=== PATIENT | male | born 1980 | race Caucasian/White ===

== ENCOUNTER 2020-11-04 10:09 | Inpatient (IN) | payer BC, SELFPAY ==
[2020-11-04] VITALS (25 sets, daily range): BP systolic 122–156; BP diastolic 72–88; PULSE 82–115; RESP 18–43; TEMP 36.5–37.2; O2SAT 88–94; BMI 56.2
--- NOTE | ~2020-11-04 | XR_ITS ---
EXAMINATION: XR chest 1V portable DATE: 11/08/2020 07:36 INDICATION: Pneumonia TECHNIQUE: frontal view of the chest was obtained. COMPARISON: Chest radiograph dated 11/06/2020 FINDINGS: Continued slight increase in density of scattered bilateral patchy airspace opacities. No pneumothora x or definitive pleural effusion. The cardiomediastinal silhouette is normal. IMPRESSION: 1. Increasing bilateral patchy airspace opacities consistent with worsening pneumonia. Reviewed, dictated and finalized at location A. IMPRESSION: 1. Increasing bilateral patchy airspace opacities consistent with worsening pne umonia.
--- NOTE | ~2020-11-04 | XR_ITS ---
EXAMINATION: XR chest 1V portable INDICATION: Shortness of breath, COVID 19 positive TECHNIQUE: Portable AP chest at 1038 hours COMPARISON: None available FINDINGS: There are diffuse patchy opacities throughout all lung zones. No pleural effusion or pneumo thorax is identified. The cardiomediastinal silhouette is normal. The visualized osseous structures a re unremarkable. IMPRESSION: 1. Diffuse lung disease, consistent with pneumonia and/or pulmonary edema edema. Reviewed, dictated and finalized at location A. IMPRESSION: 1. Diffuse lung disease, consistent with pneumonia and/or pulmonary edema edema .
--- NOTE | ~2020-11-04 | XR_ITS ---
XR chest 1V portable 11/06/2020 06:14 Indication: Hypoxia. Pneumonia. Procedure: AP portable chest Comparison: 11/04/2020 Findings: Persistent diffuse bilateral airspace disease, consistent with pneumonia, without significa nt change. No significant effusion or pneumothorax. No acute osseous abnormality. Impression: 1: Persistent bilateral airspace disease, compatible with pneumonia. Reviewed, dictated and finalized at location A. Impression: 1: Persistent bilateral airspace disease, compatible with pneumonia.
--- NOTE | ~2020-11-04 | CT_ITS ---
EXAMINATION: CTA chest PE protocol DATE: 11/04/2020 13:26 INDICATION: Shortness of breath, cough, COVID 19 positive TECHNIQUE: Computed tomography angiography (CTA) of the chest was performed with 200 mL Omnipaque-350 intravenous contrast timed to evaluate the pulmonary arteries. Coronal maximum intensity projection 3D-reconstructions were created by the technologist. The dose-length product (DLP) was 1642.11 mGy-cm . Automated exposure control and iterative reconstruction technique were employed. COMPARISON: None. FINDINGS: There is suboptimal opacification of the pulmonary arteries after two attempts. No central pulmonary embolism is identified. There are widespread patchy groundglass and nodular opacities throu ghout all lung zones. There is no pleural effusion or pneumothorax. The heart size is normal. There i s mild bilateral hilar lymphadenopathy, likely reactive. There are stones in the upper pole of the le ft kidney which measure up to 6 mm. IMPRESSION: 1. Limited evaluation for pulmonary embolism with no central pulmonary embolism identified. 2. Diffuse lung disease consistent with history of COVID 19 pneumonia. 3. Left nephrolithiasis. Reviewed, dictated and finalized at location A.
--- NOTE | 2020-11-04 10:25 | ECG_ITS ---
Measurements Intervals [place] Rate: 112 P: 22 HI: 164 QRS: 5 QRSD: 93 T: 33 QT: 340 QTc: 464 Interpretive Statements SINUS TACHYCARDIA INCOMPLETE RIGHT BUNDLE BRANCH BLOCK BASELINE ARTIFACT- I, II, III, AVR, AVF, V1-V6 ABNORMAL ECG Electronically Signed On 11-04-2020 10:52:51 CDT by Ion Horton D.O.
[2020-11-04 10:50] LABS: Basophils Percent Auto 0.2 % (0.2-1.2); Hematocrit 43.1 % (42.0-52.0); Hemoglobin 14.1 g/dL (14.0-18.0); Immature Granulocyte Absolute 0.04 K/mm3 (0.00-0.031); Immature Granulocyte Percent A 0.6 % (0-0.5); Lymphocytes Absolute Auto 0.61 K/mm3 (0.9-3.2); Lymphocytes Percent Auto 9.5 % (18.3-44.2); Mean Corpuscular HGB Conc 32.7 g/dl (32-36); Mean Corpuscular Hemoglobin 26.5 pg (26-34); Mean Platelet Volume 9.9 fl (7.4-10.4); Monocytes Absolute Auto 0.3 K/mm3 (0.1-0.6); Monocytes Percent Auto 4.5 % (2.6-8.5); Neutrophils Absolute Auto 5.5 K/mm3 (1.3-6.7); Neutrophils Percent Auto 85.2 % (45.5-73.1); Platelet Count Result 161 k/mm3 (150-375); Red Blood Count 5.32 M/mm3 (4.6-6.20); Red Cell Distribution Width 15.1 % (11.5-14.5); White Blood Count 6.4 K/mm3 (4.5-10.0)
[2020-11-04 11:01] LABS: Base Excess ABG -1.7 mEq/l (+/-2.0); Fractional Inspired Oxygen 32 %; HCO3 ABG 20.9 mEq/l (22.0-26.0); Oxygen Content ABG 18.6 %vol (16.0-22.0); Oxygen Saturation ABG 94.4 % (95.0-100.0); Oxyhemoglobin 92.6 % THb (90.0-100.0); PCO2 ABG 29.9 mmHg (35.0-45.0); PO2 ABG 66.2 mmHg (80.0-100.0); PO2 FiO2 Ratio Arterial Blood 2.07 %; Total Hemoglobin 14.3 g/dL (12.0-18.0); pH ABG 7.462 (7.350-7.450)
[2020-11-04 11:03] LABS: Device NASAL CANNULA; Modified Allen's Test Pass; Site Drawn LEFT RADIAL
[2020-11-04 11:48] LABS: Anion Gap 8 mmol/L (8-16); Blood Urea Nitrogen 9 mg/dL (9-20); Calcium 8.6 mg/dL (8.4-10.2); Carbon Dioxide 26 mmol/L (22-30); Chloride 102 mmol/L (98-107); Estimated CRCL calculation 205 ml/min; Estimated Glomerular Filt Rate > 60; Glucose 163 mg/dL (75-110); Potassium 3.7 mmol/L (3.4-5.0); Sodium 136 mmol/L (137-145)
[2020-11-04 11:53] LABS: Alanine Aminotransferase 46 U/L (4-50); Albumin Level 3.8 g/dL (3.5-5.1); Alkaline Phosphatase 55 U/L (38-126); Aspartate Amino Transferase 49 U/L (17-59); Bilirubin,Total 1.1 mg/dL (0.2-1.3)
--- NOTE | 2020-11-04 12:16 | ED.SOB ---
HPI - SOB/Dyspnea General Chief Complaint: Shortness of Breath/Dyspnea Stated Complaint: COVID+ on Saturday / SOB Time Seen by Provider: 11/04/20 10:28 Source: patient and RN notes reviewed Mode of arrival: ambulatory Limitations: no limitations History of Present Illness HPI Narrative: Patient is 40 years old white male presented to the ED with shortness of breath and not feeling well over the last few days. 9 days ago patient started having slight headache, coughing, body aches, sore throat, 6 days later was tested positive for COVID-19. Patient did not get the Covid vaccine because he was feeling leery about it. Patient is 208 kg, does not smoke, Related Data Allergies Allergy/AdvReac Type Severity Reaction Status Date / Time No Known Allergies Allergy Verified 11/04/20 10:26 Review of Systems Review of Systems: Narrative: CONSTITUTIONAL: Denies fever, chills, or sweats. EYES: Denies visual changes, redness, or discharge. ENT: Denies rhinorrhea, congestion, sore throat, or otalgia. CARDIOVASCULAR: Denies chest pain, palpitations, or edema. RESPIRATORY: Coughing, shortness of breath GASTROINTESTINAL: Denies abdominal pain, nausea, vomiting, or diarrhea. GENITOURINARY: Denies dysuria or hematuria. SKIN: Denies rash or itching. MUSCULOSKELETAL: Denies back pain, joint pain, or myalgia. NEUROLOGIC: Denies headache, numbness, or weakness. PSYCHIATRIC: Denies anxiety or depression. Exam Narrative: Exam Narrative: General appearance: Well-developed, well-nourished, morbidly obese, sitting in bed comfortable, no labored breathing. Skin: Normal color Head: Normocephalic, nontraumatic Eyes: Clear conjunctiva ENT: Oropharynx normal, ears normal, nose normal Neck: Supple, nontender Chest and respiratory: Airway patent, mild to moderate diminution of air entry bilaterally, few scattered rhonchi and rales mainly at the bases bilaterally Heart: Tachycardia Abdomen: Soft, nontender, no organomegaly, quiet bowel sounds Vascular: Normal peripheral pulses, normal capillary refill. 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 Labs, chest x-ray, CTA pulmonary ordered. Further plan to follow Differential Diagnosis Differential diagnosis: Likely other (, Pneumonia, acute hypoxic respiratory failure, ARDS) Lab Data Result diagrams: 11/04/20 10:37 11/04/20 11:24 Labs: Lab Results 11/04/20 11/04/20 11/04/20 Range/Units 10:37 11:24 11:24 WBC 6.4 (4.5-10.0) K/mm3 RBC 5.32 (4.6-6.20) M/mm3 Hgb 14.1 (14.0-18.0) g/dL Hct 43.1 (42.0-52.0) % MCV 81.0 (80-100) fl MCH 26.5 (26-34) pg MCHC 32.7 (32-36) g/dl RDW 15.1 H (11.5-14.5) % Plt Count 161 (150-375) k/mm3 MPV 9.9 (7.4-10.4) fl Immature Gran % (Auto) 0.6 H (0-0.5) % Neut % (Auto) 85.2 H (45.5-73.1) % Lymph % (Auto) 9.5 L (18.3-44.2) % S[place] % (Auto) 4.5 (2.6-8.5) % Eos % (Auto) 0.0 (0-4.4) % Baso % (Auto) 0.2 (0.2-1.2)
[2020-11-04] MEDS: DEXAMETHASONE 2 MG TABLET 6 MG PO (12:59)
--- NOTE | 2020-11-04 14:00 | PM.IMHP ---
H&P: HPI History of Present Illness Date/Time: 11/04/20 13:30 Chief Complaint: Shortness of breath and low oxygen levels. Narrative: This is a very pleasant 40-year-old male with hypertension, post ablative hypothyroidism, sleep apnea, and morbid obesity presented to the emergency department earlier today via private vehicle for evaluation of shortness of breath and low oxygen levels noted on his smart watch. He began feeling poorly about 9 days ago with headache, nonproductive cough, sore throat, subjective fever, and body aches. Six days thereafter he tested positive for COVID-19 and he was given prescriptions for azithromycin, zinc, and famotidine. Unfortunately he has been feeling worse over last few days with shortness of breath and today he noticed that his oxygen saturations were in the 80s on his smart watch and thus he came in for evaluation. Chest x-ray shows diffuse lung disease consistent with pneumonia and due to oxygen requirements he is being admitted for further treatment. The patient is from [place] but is been in the area for a job since last February. Several coworkers have had COVID over the last year but none for about a month, to his knowledge. He has no known exposure to those positive for COVID recently. He denies chest pain, pleuritic pain, palpitations, orthopnea, PND, and lower extremity edema. He has had some nausea and dry heaves but no vomiting. No recent diarrhea. Review of Systems Review of Systems: Narrative: Twelve systems were reviewed with pertinent positives and negatives as per HPI. He has had a mild sore throat. Reports decreased in smell and taste recently. No vomiting or diarrhea. Denies dysuria. States compliance with CPAP at nighttime. No history of diabetes. Was set for weight loss surgery sometime in 2019 but on preoperative work he was found to have hyperthyroidism and had radioactive iodine ablation shortly thereafter. He then became hypothyroid and gained quite a bit of weight. Except as documented, all other systems were reviewed and are negative. [facility] Past Medical History Medical History (Updated 11/04/20 @ 21:52 by Maribell Wilson PA-C) Graves disease Status post radioactive iodine ablation in 2019. Hypertension Hypothyroidism Post ablated hypothyroidism. Morbid obesity Nephrolithiasis Obstructive sleep apnea on CPAP Surgical History Surgical History (Updated 11/04/20 @ 21:48 by Maribell Wilson PA-C) History of appendectomy History of arthroscopy of left knee History of inguinal hernia repair History of lithotripsy History of tonsillectomy and adenoidectomy Status post LASIK surgery Family History Family History Mother Diabetes mellitus Stomach cancer Father Diabetes mellitus Malignant neoplasm of prostate Thyroid cancer Cerebrovascular accident Social History Social History (Updated 11/04/20 @ 21:49 by Maribell Wilson PA-C) Social History: The patient lives in [place] with his and children. He is in the area working since February 2020. Former smoker, up to 1.5 packs of cigarettes a day for 15 years. Drinks perhaps 1 alcoholic beverage a week. No illicit substance use. He designates his , Yuly Wilburn, as his surrogate decision maker and he wishes to be a full code. Drinks per week: 1 Sexual Orientation (if Verbalized by the Patient): . Meds Home Medications and Allergies Home Medications Medication Instructions Recorded Confirmed Type Vitamin D3 4,000 unit PO DAILY 11/04/20 11/04/20 History ascorbic acid (vitamin C) [Vitamin 500 mg PO BID 11/04/20 11/04/20 History C] famotidine 20 mg PO BID 11/04/20 11/04/20 History hydrochlorothiazide 25 mg PO DAILY 11/04/20 11/04/20 History levothyroxine [Synthroid] 250 mcg PO DAILY 11/04/20 11/04/20 History lisinopril 20 mg PO DAILY 11/04/20 11/04/20 History propranolol 40 mg PO TID 11/04/20 11/04/20 History z
--- NOTE | 2020-11-04 15:34 | ADMGEN ---
This patient, Wood Wilburn, was admitted to 3 Med Surg Room 328-01. Patient/family oriented to hospital policies and general routines including ID bracelet, bed and alarms, visiting hours, pain management, procedures, bathroom and other care routines, personal items, smoking policy, room service/diet, and visiting hours. Information on how to activate the Rapid Response Team has been discussed. Patient/Family are encouraged to report perceived risks to care and to ask questions if they do not understand what they are told or what they should do.
[2020-11-04 21:14] LABS: Glucose Point of Care 212 mg/dl (65-105)
[2020-11-04] MEDS: ALBUTEROL SULFATE NEB 2.5 MG/0.5 ML INH 5 MG INHALATION (21:57)
[2020-11-04 22:40] LABS: INR 1.1; Prothrombin Time 14.5 Seconds (11.1-14.7)
[2020-11-04] MEDS: PROPRANOLOL HCL 40 MG TABLET PO (23:19)
[2020-11-04] MEDS: REMDESIVIR 200 MG/NS 250 ML 200 MG/250 ML BAG 250 MG IVPB (23:19)
[2020-11-05] VITALS (27 sets, daily range): BP systolic 112–141; BP diastolic 60–85; PULSE 75–108; RESP 18–28; TEMP 36.6–37.7; O2SAT 86–99
[2020-11-05] MEDS: LEVOTHYROXINE SODIUM 125 MCG TABLET 250 MCG PO (06:11)
[2020-11-05 06:40] LABS: Hematocrit 40.9 % (42.0-52.0); Hemoglobin 13.3 g/dL (14.0-18.0); Mean Corpuscular HGB Conc 32.5 g/dl (32-36); Mean Corpuscular Hemoglobin 26.5 pg (26-34); Mean Corpuscular Volume 81.5 fl (80-100); Mean Platelet Volume 10.1 fl (7.4-10.4); Platelet Count Result 204 k/mm3 (150-375); Red Blood Count 5.02 M/mm3 (4.6-6.20)
--- NOTE | 2020-11-05 06:45 | PCRCNOTE ---
Window of time for administration has passed. See next scheduled administration.
[2020-11-05 06:48] LABS: INR 1.1; Prothrombin Time 14.4 Seconds (11.1-14.7)
[2020-11-05 07:06] LABS: Alanine Aminotransferase 45 U/L (4-50); Albumin Level 3.9 g/dL (3.5-5.1); Alkaline Phosphatase 53 U/L (38-126); Anion Gap 12 mmol/L (8-16); Aspartate Amino Transferase 53 U/L (17-59); Bilirubin,Total 0.9 mg/dL (0.2-1.3); Blood Urea Nitrogen 12 mg/dL (9-20); CRP 22.7 mg/dL (<1.0); Calcium 8.9 mg/dL (8.4-10.2); Carbon Dioxide 24 mmol/L (22-30); Chloride 100 mmol/L (98-107); Estimated CRCL calculation 204 ml/min; Estimated Glomerular Filt Rate > 60; Glucose 161 mg/dL (75-110); Lactate Dehydrogenase 994 U/L (313-618); Magnesium 1.7 mg/dL (1.6-2.3); Potassium 4.2 mmol/L (3.4-5.0); Sodium 136 mmol/L (137-145)
[2020-11-05] MEDS: ALBUTEROL SULFATE NEB 2.5 MG/0.5 ML INH 5 MG INHALATION ×2 (08:50→21:43)
[2020-11-05] MEDS: PROPRANOLOL HCL 40 MG TABLET PO ×3 (09:45→17:55)
[2020-11-05] MEDS: CHOLECALCIFEROL 1,000 UNITS TABLET 4000 UNITS PO (09:46)
[2020-11-05] MEDS: lisinopriL 20 MG TABLET PO (09:46)
[2020-11-05] MEDS: ZINC SULFATE 220 MG CAPSULE PO (09:46)
[2020-11-05] MEDS: FAMOTIDINE 20 MG TABLET PO ×2 (09:47→17:55)
[2020-11-05] MEDS: hydroCHLOROthiazide 25 MG TABLET PO (09:47)
[2020-11-05] MEDS: ASCORBIC ACID 500 MG TABLET PO ×2 (09:47→17:55)
[2020-11-05] MEDS: ENOXAPARIN 40 MG/0.4 ML SYRINGE SUB-Q ×2 (09:47→20:36)
[2020-11-05 14:54] LABS: Alveolar/Arterial O2 Gradient 428.9 mmHg; Base Excess ABG 1.5 mEq/l (+/-2.0); Carboxyhemoglobin 0.4 % THb (0-2.0); Device HIGH FLOW THERAPY; Fractional Inspired Oxygen 75 %; HCO3 ABG 24.9 mEq/l (22.0-26.0); Methemoglobin ABG 0.4 %THb (0-1.5); Modified Allen's Test Pass; Oxygen Content ABG 18.7 %vol (16.0-22.0); Oxygen Saturation ABG 94.7 % (95.0-100.0); Oxyhemoglobin 93.2 % THb (90.0-100.0); PCO2 ABG 35.5 mmHg (35.0-45.0); PO2 ABG 68.1 mmHg (80.0-100.0); PO2 FiO2 Ratio Arterial Blood 0.91 %; Site Drawn LEFT RADIAL; Total Hemoglobin 14.3 g/dL (12.0-18.0); pH ABG 7.463 (7.350-7.450)
--- NOTE | 2020-11-05 15:09 | PM.IMPN ---
Progress Note: A&P Assessment and Plan (1) Acute respiratory failure with hypoxia: Code(s): J96.01 - Acute respiratory failure with hypoxia Status: Acute Assessment and Plan: The patient is a 40-year-old man with a history of hypertension, hypothyroidism, who presented to the emergency room with increased shortness of breath and his smart watch telling him he had low oxygen levels. The patient developed COVID-19 symptoms of shortness of breath, cough, fatigue on 10/26/20. he had a COVID swab and was found to be positive on 10/31/2020. He called his doctor who is in [place] who prescribed him azithromycin, zinc and famotidine. His symptoms were not improving and instead gradually worsening and decided to come in for further evaluation. Initial vitals showed he was afebrile at 97.7?, tachycardic at 114, increased respiratory rate at 28 respirations a minute, blood pressure 139/83, and hypoxic at 88% on room air. Initial labs showed normal CBC with elevated neutrophil count at 85%, normal coag panel, ABG showing respiratory alkalosis from hyperventilation While on 3 L of oxygen. glucose elevated at 163, otherwise normal CMP. CTA of his chest was completed showing Limited evaluation for pulmonary embolism with no central pulmonary embolism identified. Diffuse lung disease consistent with history of COVID 19 pneumonia. He was admitted into the hospital for COVID-19 pneumonia and acute respiratory failure with hypoxia. Started on IV Remdesivir, IV dexamethasone, p.r.n. inhalers and monitoring of respiratory status. 1400: The patient's nurse called and informed me that he had been on 6 L of oxygen via nasal cannula was still found to be hypoxic. He was being placed on Airvo by respiratory due to hypoxia. Stat ABG showed respiratory alkalosis, slightly elevated pH, normal pCO2 and O2 94% while on High Flow Therapy 50 LPM, FiO2 75%. Stable at this time per ABG. The patient will be transferred to the IMU for further evaluation and monitoring. I talked to the resident care coordinator, Dr. Weston, who recommended ordering Convalescent Plasma, Blood cultures due to decompensation and adding IV Azithromycin and Ceftriaxone, Turning the patient side to side to help with ventilation. If the patient decompensates from Airvo then he will require BiPAP and recommended starting with settings, 12/5 with 100% ventilation The patient can still wear his CPAP and will get the patients home settings Continue monitoring the patient's respiratory status. (2) Pneumonia due to COVID-19 virus: Code(s): U07.1 - COVID-19; J12.82 - Pneumonia due to coronavirus disease 2018 Status: Acute Assessment and Plan: see above. (3) Hypertension: Code(s): I10 - Essential (primary) hypertension Status: Acute Assessment and Plan: Blood pressure stable at 125/62. continue home medications (4) Hypothyroidism: Code(s): E03.9 - Hypothyroidism, unspecified Status: Acute Assessment and Plan: continue levothyroxine. TSH was normal. (5) Obstructive sleep apnea on CPAP: Code(s): G47.33 - Obstructive sleep apnea (adult) (pediatric); Z99.89 - Dependence on other enabling machines and devices Status: Acute Assessment and Plan: The patient can still wear his CPAP and will get the patients home settings (6) Elevated glucose: Code(s): R73.09 - Other abnormal glucose Status: Acute Assessment and Plan: Patient had elevated glucose levels. he is not on any diabetes medication at this time. Will check hemoglobin A1c in the morning in the meantime while he is on steroids and having elevated glucose we will check glucose a.c. HS. slidi
--- NOTE | 2020-11-05 16:07 | PC.NURSE ---
This RN transferred pt to IMU 214; report given to Gin. Pt belongings, CPAP, and phone sent with pt. notifed.
[2020-11-05 16:21] LABS: Glucose Point of Care 156 mg/dl (65-105)
--- NOTE | 2020-11-05 17:06 | PCRCNOTE ---
Window of time for administration has passed. See next scheduled administration.
[2020-11-05] MEDS: DEXAMETHASONE SOD PHOS INJ 4 MG/ML VIAL 6 MG IV PUSH (17:55)
--- NOTE | 2020-11-05 19:58 | PC.NURSE ---
This patient, Wood Wilburn, was received from [3rd med/surg ] on 11/05/20 at 1545. Patient/family oriented to unit policies and routines
[2020-11-05 20:07] LABS: Glucose Point of Care 158 mg/dl (65-105)
[2020-11-05] MEDS: SODIUM CHLORIDE NASAL GEL 14.1 GM 1 APPLIC NASAL (20:36)
[2020-11-05] MEDS: REMDESIVIR 100 MG/NS 250 ML 100 MG/250 ML BAG 250 MG IVPB (20:36)
[2020-11-06] VITALS (34 sets, daily range): BP systolic 110–133; BP diastolic 56–76; PULSE 63–81; RESP 20–26; TEMP 35.9–37.1; O2SAT 94–98
[2020-11-06] MEDS: ALBUTEROL SULFATE NEB 2.5 MG/0.5 ML INH 5 MG INHALATION ×4 (03:21→20:10)
[2020-11-06] MEDS: LEVOTHYROXINE SODIUM 125 MCG TABLET 250 MCG PO (05:33)
[2020-11-06 06:02] LABS: Hematocrit 40.7 % (42.0-52.0); Hemoglobin 12.9 g/dL (14.0-18.0); Mean Corpuscular HGB Conc 31.7 g/dl (32-36); Mean Corpuscular Hemoglobin 26.4 pg (26-34); Mean Corpuscular Volume 83.2 fl (80-100); Mean Platelet Volume 9.6 fl (7.4-10.4); Platelet Count Result 236 k/mm3 (150-375); Red Blood Count 4.89 M/mm3 (4.6-6.20); Red Cell Distribution Width 15.2 % (11.5-14.5); White Blood Count 5.9 K/mm3 (4.5-10.0)
[2020-11-06 06:20] LABS: INR 1.1; Prothrombin Time 14.7 Seconds (11.1-14.7)
[2020-11-06 06:21] LABS: NT Pro B Type Natriuretic Pept 251 pg/mL (5-100)
[2020-11-06 06:29] LABS: Alanine Aminotransferase 45 U/L (4-50); Alkaline Phosphatase 50 U/L (38-126); Anion Gap 10 mmol/L (8-16); Aspartate Amino Transferase 46 U/L (17-59); Bilirubin,Total 0.7 mg/dL (0.2-1.3); Blood Urea Nitrogen 19 mg/dL (9-20); CRP 17.4 mg/dL (<1.0); Calcium 9.2 mg/dL (8.4-10.2); Carbon Dioxide 26 mmol/L (22-30); Chloride 102 mmol/L (98-107); Estimated CRCL calculation 204 ml/min; Estimated Glomerular Filt Rate > 60; Glucose 198 mg/dL (75-110); Potassium 4.4 mmol/L (3.4-5.0); Sodium 138 mmol/L (137-145)
[2020-11-06 07:11] LABS: Glucose Point of Care 161 mg/dl (65-105)
[2020-11-06 07:18] LABS: Hemoglobin A1C 6.8 % (<5.7)
[2020-11-06] MEDS: FAMOTIDINE 20 MG TABLET PO ×2 (08:40→17:59)
[2020-11-06] MEDS: lisinopriL 20 MG TABLET PO (08:40)
[2020-11-06] MEDS: ENOXAPARIN 40 MG/0.4 ML SYRINGE SUB-Q ×2 (08:40→20:48)
[2020-11-06] MEDS: hydroCHLOROthiazide 25 MG TABLET PO (08:41)
[2020-11-06] MEDS: CHOLECALCIFEROL 1,000 UNITS TABLET 4000 UNITS PO (08:41)
[2020-11-06] MEDS: DEXAMETHASONE SOD PHOS INJ 4 MG/ML VIAL 6 MG IV PUSH (08:41)
[2020-11-06] MEDS: PROPRANOLOL HCL 40 MG TABLET PO ×3 (08:42→17:58)
[2020-11-06] MEDS: ASCORBIC ACID 500 MG TABLET PO ×2 (08:42→17:58)
[2020-11-06] MEDS: ZINC SULFATE 220 MG CAPSULE PO (08:43)
--- NOTE | 2020-11-06 10:20 | PM.IMPN ---
Progress Note: A&P Assessment and Plan (1) Acute respiratory failure with hypoxia: Code(s): J96.01 - Acute respiratory failure with hypoxia Status: Acute Assessment and Plan: The patient is a 40-year-old man with a history of hypertension, hypothyroidism, who presented to the emergency room with increased shortness of breath and his smart watch telling him he had low oxygen levels. The patient developed COVID-19 symptoms of shortness of breath, cough, fatigue on 10/26/20. he had a COVID swab and was found to be positive on 10/31/2020. He called his doctor who is in [place] who prescribed him azithromycin, zinc and famotidine. His symptoms were not improving and instead gradually worsening and decided to come in for further evaluation. Initial vitals showed he was afebrile at 97.7?, tachycardic at 114, increased respiratory rate at 28 respirations a minute, blood pressure 139/83, and hypoxic at 88% on room air. Initial labs showed normal CBC with elevated neutrophil count at 85%, normal coag panel, ABG showing respiratory alkalosis from hyperventilation While on 3 L of oxygen. glucose elevated at 163, otherwise normal CMP. CTA of his chest was completed showing Limited evaluation for pulmonary embolism with no central pulmonary embolism identified. Diffuse lung disease consistent with history of COVID 19 pneumonia. He was admitted into the hospital for COVID-19 pneumonia and acute respiratory failure with hypoxia. Hypoxia secondary to COVID Started on IV Remdesivir, IV dexamethasone, p.r.n. inhalers and monitoring of respiratory status. 11/06/20 1400: The patient's nurse called and informed me that he was hypoxic with and requiring Airvo. 6 L of oxygen via nasal cannula was still found to be hypoxic. Stat ABG showed respiratory alkalosis, slightly elevated pH, normal pCO2 and O2 94% while on High Flow Therapy 50 LPM, FiO2 75%. He was moved to the IMU for further evaluation. I talked to the link trainer, Dr. Weston, who recommended ordering Convalescent Plasma, Blood cultures due to decompensation and adding IV Azithromycin and Ceftriaxone, Turning the patient side to side to help with ventilation. If the patient decompensates from Airvo then he will require BiPAP and recommended starting with settings, 12/5 with 100% ventilation Today, patient is stable 95%, Airvo 50-90. Continue monitoring the patient's respiratory status. Appreciate pulmonology's input. (2) Pneumonia due to COVID-19 virus: Code(s): U07.1 - COVID-19; J12.82 - Pneumonia due to coronavirus disease 2018 Status: Acute Assessment and Plan: see above. (3) Hypertension: Code(s): I10 - Essential (primary) hypertension Status: Acute Assessment and Plan: Blood pressure stable at 120/73. Continue home medications (4) Hypothyroidism: Code(s): E03.9 - Hypothyroidism, unspecified Status: Acute Assessment and Plan: continue levothyroxine. TSH was normal. (5) Obstructive sleep apnea on CPAP: Code(s): G47.33 - Obstructive sleep apnea (adult) (pediatric); Z99.89 - Dependence on other enabling machines and devices Status: Acute Assessment and Plan: The patient can still wear his CPAP and will get the patients home settings (6) New onset type 2 diabetes mellitus: Code(s): E11.9 - Type 2 diabetes mellitus without complications Status: Acute Assessment and Plan: Patient had elevated glucose levels and hemoglobin A1c is elevated at 6.8%. He has a new onset diabetic at this time. Will consider starting metformin upon discharge. While here we were continue checking glucose and giving sliding scale insulin as needed. His
--- NOTE | 2020-11-06 10:38 | PM.CNPUL ---
Assessment and Plan Assessment and plan (1) Pneumonia due to COVID-19 virus: Code(s): U07.1 - COVID-19; J12.82 - Pneumonia due to coronavirus disease 2019 Status: Acute Assessment and Plan: Patient with COVID postitive test on 10/31 and admitted with pneumonia with hypoxemic respiratory failure on 11/04. started on dexamethasone and Remdesivir on 11/04 and given convalescent plasma on 11/05 Emperically started on ceftriaxone and azithromycin 11/05. -Remdesivir for 10 days -Dexamethasone for 10 days - Continuous pulse oximetry - attempt Prone positioning but limited as morbidly obese. - Avoid any fluid overload. BNP 251 on 11/06. - Emperic azithromycin and ceftraixone for CAP. - Obtain echo to assess LV function in future. - Lovenox from 40 b.i.d. 11/06 Today the patient tells me that he feels better, he did have a fever and sweats last night and he was able to taste his dinner last night. Patient is currently on high-flow nasal cannula 50 L and 65% with saturations 94%. Goal saturations are 90-94% and will utilize high-flow oxygen, BiPAP, or mechanical ventilation. Conference call with his and patient and patient is full code Discussed with Jade Bender. Will follow with you. (2) Acute respiratory failure with hypoxia: Code(s): J96.01 - Acute respiratory failure with hypoxia Status: Acute Assessment and Plan: Etiology of hypoxic respiratorey failure is COVID pneumonia. 11/04 10:15 RA sats 88%. 11/04 10:45 3L NC sats 93% 11/05 10:00 6L NC sats 96% 11/05 14:00 15 L NC sats 92%. 11/05 22:00 high-flow NC at 50 L and 70% sats 98%. 11/05 22: BiPAP 12/ and 70%. 11/06 09:00 high flow NC at 50 L and 65% sats 94%. (3) Obstructive sleep apnea on CPAP: Code(s): G47.33 - Obstructive sleep apnea (adult) (pediatric); Z99.89 - Dependence on other enabling machines and devices Status: Acute Assessment and Plan: Regarding his obstructive sleep apnea patient states he had a sleep study at least 10 years ago and has been wearing CPAP mask since then with good clinical benefit. Patient states he can't sleep without the mask. Patient wears room air and he usually wears a nasal mask but over the last week as he has been sick he is switched to a fullface mask. Patient brought his home CPAP machine in and he is on a CPAP of 14, the data from the machine tells me that his days usage greater than 4 hours is 11/29/2029 days, his AHI is 0.5 over the last [address] Aniyah Jarquin is the physician that monitors his compliance and gets him his supplies and the patient tells me that he is in the process of getting a new machine because the machine is old and not because of any change in his clinical status. 11/05 Wore hospital BiPAP 12/5 70% and felt good according to patient. Will continue BiPAP at these settings for now. History of Present Illness History of Present Illness Consult date: 11/06/20 Requesting physician: Jade Bender PA-C Reason for consult: hypoxemia Chief complaint: Acute Hypoxic Resp Failure, Covid Pneumonia Narrative: This is a new patient consult for COVID pneumonia with hypoxemic respiratory failure this is a 40-year-old male with morbid obesity, obstructive sleep apnea for 10 years on a CPAP 14 with a nasal mask until the last week in which he has been wearing a fullface mask, hypertension who has COVID pneumonia with hypoxic respiratory failure. Patient tested positive for COVID on 10/31 and continued to have worsening respiratory symptoms. Patient presented to the emergency department on 11/04 with room air saturations 88%. Patient had a CT angiogram of the chest which demonstrated no pulmonary embolism but diffuse multifocal ground-glass infiltrates consistent with COVID pneumonia. Patient's original ABG on 3 L nasal cannula was 7.46/30/. Patient was started on REM de severe and dexamethasone on 11/04. On 11/05 patient required 6 L nasal cannula oxyge
[2020-11-06 11:42] LABS: Glucose Point of Care 191 mg/dl (65-105)
[2020-11-06 17:17] LABS: Glucose Point of Care 187 mg/dl (65-105)
[2020-11-06] MEDS: REMDESIVIR 100 MG/NS 250 ML 100 MG/250 ML BAG 250 MG IVPB (20:51)
[2020-11-06 20:52] LABS: Glucose Point of Care 207 mg/dl (65-105)
[2020-11-07] VITALS (34 sets, daily range): BP systolic 108–131; BP diastolic 20–77; PULSE 50–76; RESP 15–72; TEMP 36.4–37.2; O2SAT 94–98
[2020-11-07] MEDS: ALBUTEROL SULFATE NEB 2.5 MG/0.5 ML INH 5 MG INHALATION ×2 (02:30→08:50)
[2020-11-07 05:55] LABS: Alanine Aminotransferase 41 U/L (4-50); Estimated CRCL calculation 231 ml/min; Estimated Glomerular Filt Rate > 60
[2020-11-07] MEDS: LEVOTHYROXINE SODIUM 125 MCG TABLET 250 MCG PO (06:14)
[2020-11-07 06:41] LABS: INR 1.1; Prothrombin Time 14.8 Seconds (11.1-14.7)
[2020-11-07 08:06] LABS: Glucose Point of Care 168 mg/dl (65-105)
[2020-11-07] MEDS: DEXAMETHASONE SOD PHOS INJ 4 MG/ML VIAL 6 MG IV PUSH (08:58)
[2020-11-07] MEDS: FAMOTIDINE 20 MG TABLET PO ×2 (08:59→17:51)
[2020-11-07] MEDS: CHOLECALCIFEROL 1,000 UNITS TABLET 4000 UNITS PO (08:59)
[2020-11-07] MEDS: hydroCHLOROthiazide 25 MG TABLET PO (08:59)
[2020-11-07] MEDS: ZINC SULFATE 220 MG CAPSULE PO (08:59)
[2020-11-07] MEDS: lisinopriL 20 MG TABLET PO (08:59)
[2020-11-07] MEDS: ASCORBIC ACID 500 MG TABLET PO ×2 (08:59→17:51)
[2020-11-07] MEDS: ENOXAPARIN 40 MG/0.4 ML SYRINGE SUB-Q ×2 (08:59→20:21)
[2020-11-07] MEDS: PROPRANOLOL HCL 40 MG TABLET PO ×3 (08:59→17:51)
--- NOTE | 2020-11-07 11:32 | PM.PNPUL ---
Progress Note: A&P Assessment and Plan (1) Pneumonia due to COVID-19 virus: Code(s): U07.1 - COVID-19; J12.82 - Pneumonia due to coronavirus disease 2019 Status: Acute Assessment and Plan: Patient with COVID postitive test on 10/31 and admitted with pneumonia with hypoxemic respiratory failure on 11/04. started on dexamethasone and Remdesivir on 11/04 and given convalescent plasma on 11/05. Emperically started on ceftriaxone and azithromycin 11/05. -Remdesivir for 10 days -Dexamethasone for 10 days - Continuous pulse oximetry - attempt Prone positioning but limited as morbidly obese. - Avoid any fluid overload. BNP 251 on 11/06. - Emperic azithromycin and ceftraixone for CAP. - Obtain echo to assess LV function in future. - Lovenox 40 b.i.d. 11/06 Today the patient tells me that he feels better, he did have a fever and sweats last night and he was able to taste his dinner last night. Patient is currently on high-flow nasal cannula 50 L and 65% with saturations 94%. 11/07 Today patient tells me that he is improved and feels much better. Patient is currently on high-flow nasal cannula 10 L with saturations 96%, great improvement. Patient is sitting up in a chair in no respiratory distress. If blood cultures negative 11/08 will DC ceftraixone and azithromycin. Goal saturations are 90-94% and will utilize high-flow oxygen, BiPAP, or mechanical ventilation. 11/06 Conference call with his and patient and patient is full code Will follow with you. (2) Acute respiratory failure with hypoxia: Code(s): J96.01 - Acute respiratory failure with hypoxia Status: Acute Assessment and Plan: Etiology of hypoxic respiratorey failure is COVID pneumonia. 11/04 10:15 RA sats 88%. 11/04 10:45 3L NC sats 93% 11/05 10:00 6L NC sats 96% 11/05 14:00 15 L NC sats 92%. 11/05 22:00 high-flow NC at 50 L and 70% sats 98%. 11/05 22:25 BiPAP 12/5 and 70%. 11/06 09:00 high flow NC at 50 L and 65% sats 94%. 11/07 10:00 NC 10 L sats 96% (3) Obstructive sleep apnea on CPAP: Code(s): G47.33 - Obstructive sleep apnea (adult) (pediatric); Z99.89 - Dependence on other enabling machines and devices Status: Acute Assessment and Plan: Regarding his obstructive sleep apnea patient states he had a sleep study at least 10 years ago and has been wearing CPAP mask since then with good clinical benefit. Patient states he can't sleep without the mask. Patient wears room air and he usually wears a nasal mask but over the last week as he has been sick he is switched to a fullface mask. Patient brought his home CPAP machine in and he is on a CPAP of 14, the data from the machine tells me that his days usage greater than 4 hours is 11/29/2029 days, his AHI is 0.5 over the last [address] Aniyah Jarquin is the physician that monitors his compliance and gets him his supplies and the patient tells me that he is in the process of getting a new machine because the machine is old and not because of any change in his clinical status. 11/05 Wore hospital BiPAP 12/5 70% and felt good according to patient. Will continue BiPAP at these settings for now. 11/07 Said he was still snorming last night. Will place on CPAP 14 with 60% tonight. Subjective Date/time seen: 11/07/20 11:32 Interval history: this is a 40-year-old male with morbid obesity, obstructive sleep apnea for 10 years on a CPAP 14 with a nasal mask until the last week in which he has been wearing a fullface mask, hypertension who has COVID pneumonia with hypoxic respiratory failure. Patient tested positive for COVID on 10/31 and continued to have worsening respiratory symptoms. Patient presented to the emergency department on 11/04 with room air saturations 88%. Patient had a CT angiogram of the chest which demonstrated no pulmonary embolism but diffuse multifocal ground-glass infiltrates consistent with COVID pneumonia. Patient's original ABG on 3 L nasal cannula was
[2020-11-07] MEDS: INSULIN ASPART (*BKC) 100 UNITS/ML SUB-Q ×2 (12:28→17:51)
[2020-11-07 12:36] LABS: Glucose Point of Care 234 mg/dl (65-105)
--- NOTE | 2020-11-07 14:48 | PM.IMPN ---
Progress Note: A&P Assessment and Plan (1) Acute respiratory failure with hypoxia: Code(s): J96.01 - Acute respiratory failure with hypoxia Status: Acute Assessment and Plan: The patient is a 40-year-old man with a history of hypertension, hypothyroidism, who presented to the emergency room with increased shortness of breath and his smart watch telling him he had low oxygen levels. The patient developed COVID-19 symptoms of shortness of breath, cough, fatigue on 10/26/20. he had a COVID swab and was found to be positive on 10/31/2020. He called his doctor who is in [place] who prescribed him azithromycin, zinc and famotidine. His symptoms were not improving and instead gradually worsening and decided to come in for further evaluation. Initial vitals showed he was afebrile at 97.7?, tachycardic at 114, increased respiratory rate at 28 respirations a minute, blood pressure 139/83, and hypoxic at 88% on room air. Initial labs showed normal CBC with elevated neutrophil count at 85%, normal coag panel, ABG showing respiratory alkalosis from hyperventilation While on 3 L of oxygen. glucose elevated at 163, otherwise normal CMP. CTA of his chest was completed showing Limited evaluation for pulmonary embolism with no central pulmonary embolism identified. Diffuse lung disease consistent with history of COVID 19 pneumonia. He was admitted into the hospital for COVID-19 pneumonia and acute respiratory failure with hypoxia. Hypoxia secondary to COVID Started on IV Remdesivir, IV dexamethasone, p.r.n. inhalers and monitoring of respiratory status. 11/06/20 1400: The patient's nurse called and informed me that he was hypoxic with and requiring Airvo. 6 L of oxygen via nasal cannula was still found to be hypoxic. Stat ABG showed respiratory alkalosis, slightly elevated pH, normal pCO2 and O2 94% while on High Flow Therapy 50 LPM, FiO2 75%. He was moved to the IMU for further evaluation. I talked to the surgical supervisor, Dr. Weston, who recommended ordering Convalescent Plasma, Blood cultures due to decompensation and adding IV Azithromycin and Ceftriaxone, Turning the patient side to side to help with ventilation. If the patient decompensates from Airvo then he will require BiPAP and recommended starting with settings, 12/5 with 100% ventilation Today, patient is stable 94% on 8 L High Flow NC. Feeling well. Continue monitoring the patient's respiratory status. Appreciate pulmonology's input. (2) Pneumonia due to COVID-19 virus: Code(s): U07.1 - COVID-19; J12.82 - Pneumonia due to coronavirus disease 2018 Status: Acute Assessment and Plan: see above. (3) Hypertension: Code(s): I10 - Essential (primary) hypertension Status: Acute Assessment and Plan: Blood pressure stable at 118/69. Continue home medications (4) Hypothyroidism: Code(s): E03.9 - Hypothyroidism, unspecified Status: Acute Assessment and Plan: continue levothyroxine. TSH was normal. (5) Obstructive sleep apnea on CPAP: Code(s): G47.33 - Obstructive sleep apnea (adult) (pediatric); Z99.89 - Dependence on other enabling machines and devices Status: Acute Assessment and Plan: The patient can still wear his CPAP and will get the patients home settings (6) New onset type 2 diabetes mellitus: Code(s): E11.9 - Type 2 diabetes mellitus without complications Status: Acute Assessment and Plan: Patient had elevated glucose levels and hemoglobin A1c is elevated at 6.8%. He has a new onset diabetic at this time. Will consider starting metformin upon discharge. While here we were continue checking glucose and giving sliding scale insulin
[2020-11-07] MEDS: ALBUTEROL SULFATE NEB 2.5 MG/0.5 ML INH INHALATION ×2 (14:57→20:54)
[2020-11-07 17:20] LABS: Glucose Point of Care 215 mg/dl (65-105)
[2020-11-07] MEDS: SODIUM CHLORIDE NASAL GEL 14.1 GM 1 APPLIC NASAL (20:21)
[2020-11-07 20:53] LABS: Glucose Point of Care 196 mg/dl (65-105)
[2020-11-07] MEDS: REMDESIVIR 100 MG/NS 250 ML 100 MG/250 ML BAG 250 MG IVPB (20:59)
[2020-11-08] VITALS (26 sets, daily range): BP systolic 117–164; BP diastolic 64–91; PULSE 58–89; RESP 15–29; TEMP 36.6–37.1; O2SAT 86–99
[2020-11-08] MEDS: ALBUTEROL SULFATE NEB 2.5 MG/0.5 ML INH INHALATION ×4 (03:41→20:34)
[2020-11-08] MEDS: LEVOTHYROXINE SODIUM 125 MCG TABLET 250 MCG PO (05:38)
[2020-11-08 05:53] LABS: Hematocrit 40.3 % (42.0-52.0); Hemoglobin 13.2 g/dL (14.0-18.0); Mean Corpuscular HGB Conc 32.8 g/dl (32-36); Mean Corpuscular Hemoglobin 26.1 pg (26-34); Mean Corpuscular Volume 79.6 fl (80-100); Mean Platelet Volume 9.7 fl (7.4-10.4); Platelet Count Result 298 k/mm3 (150-375); Red Blood Count 5.06 M/mm3 (4.6-6.20); Red Cell Distribution Width 14.3 % (11.5-14.5); White Blood Count 8.9 K/mm3 (4.5-10.0)
[2020-11-08 06:02] LABS: INR 1.1; Prothrombin Time 14.7 Seconds (11.1-14.7)
[2020-11-08 06:09] LABS: Alanine Aminotransferase 45 U/L (4-50); Anion Gap 9 mmol/L (8-16); Blood Urea Nitrogen 23 mg/dL (9-20); CRP 2.6 mg/dL (<1.0); Calcium 9.1 mg/dL (8.4-10.2); Carbon Dioxide 27 mmol/L (22-30); Chloride 103 mmol/L (98-107); Estimated CRCL calculation 204 ml/min; Estimated Glomerular Filt Rate > 60; Glucose 147 mg/dL (75-110); Sodium 139 mmol/L (137-145)
[2020-11-08 08:12] LABS: Glucose Point of Care 139 mg/dl (65-105)
[2020-11-08] MEDS: CHOLECALCIFEROL 1,000 UNITS TABLET 4000 UNITS PO (09:50)
[2020-11-08] MEDS: hydroCHLOROthiazide 25 MG TABLET PO (09:51)
[2020-11-08] MEDS: FAMOTIDINE 20 MG TABLET PO ×2 (09:51→17:39)
[2020-11-08] MEDS: ENOXAPARIN 40 MG/0.4 ML SYRINGE SUB-Q ×2 (09:51→20:29)
[2020-11-08] MEDS: ZINC SULFATE 220 MG CAPSULE PO (09:51)
[2020-11-08] MEDS: ASCORBIC ACID 500 MG TABLET PO ×2 (09:51→17:40)
[2020-11-08] MEDS: lisinopriL 20 MG TABLET PO (09:51)
[2020-11-08] MEDS: PROPRANOLOL HCL 40 MG TABLET PO ×3 (09:51→17:39)
[2020-11-08] MEDS: DEXAMETHASONE SOD PHOS INJ 4 MG/ML VIAL 6 MG IV PUSH (09:52)
[2020-11-08] MEDS: guaiFENesin/DEXTROMETHORPHAN 10 ML UDC 5 ML PO ×3 (09:53→20:30)
--- NOTE | 2020-11-08 10:01 | PM.PNPUL ---
Progress Note: A&P Assessment and Plan (1) Pneumonia due to COVID-19 virus: Code(s): U07.1 - COVID-19; J12.82 - Pneumonia due to coronavirus disease 2019 Status: Acute Assessment and Plan: Patient with COVID postitive test on 10/31 and admitted with pneumonia with hypoxemic respiratory failure on 11/04. started on dexamethasone and Remdesivir on 11/04 and given convalescent plasma on 11/05. Emperically started on ceftriaxone and azithromycin 11/05. -Remdesivir for 10 days -Dexamethasone for 10 days - Continuous pulse oximetry - attempt Prone positioning but limited as morbidly obese. - Avoid any fluid overload. BNP 251 on 11/06. - Emperic azithromycin and ceftraixone for CAP. - Obtain echo to assess LV function in future. - Lovenox 40 b.i.d. 11/06 Today the patient tells me that he feels better, he did have a fever and sweats last night and he was able to taste his dinner last night. Patient is currently on high-flow nasal cannula 50 L and 65% with saturations 94%. 11/07 Today patient tells me that he is improved and feels much better. Patient is currently on high-flow nasal cannula 10 L with saturations 96%, great improvement. Patient is sitting up in a chair in no respiratory distress. If blood cultures negative 11/08 will DC ceftraixone and azithromycin. 11/08 Slowly improving. Patient wore says the hospital CPAP 14 last night and the pressure feels fine but the machine is louder and has more alarms which annoyed the patient. Patient is currently on high-flow nasal cannula 15 L with saturations 95%. Blood cultures are negative and I will discontinue ceftriaxone and azithromycin. Goal saturations are 90-94% and will utilize high-flow oxygen, BiPAP, or mechanical ventilation. 11/06 Conference call with his and patient and patient is full code Will follow with you. (2) Acute respiratory failure with hypoxia: Code(s): J96.01 - Acute respiratory failure with hypoxia Status: Acute Assessment and Plan: Etiology of hypoxic respiratorey failure is COVID pneumonia. 11/04 10:15 RA sats 88%. 11/04 10:45 3L NC sats 93% 11/05 10:00 6L NC sats 96% 11/05 14:00 15 L NC sats 92%. 11/05 22:00 high-flow NC at 50 L and 70% sats 98%. 11/05 22:25 BiPAP 12/5 and 70%. 11/06 09:00 high flow NC at 50 L and 65% sats 94%. 11/07 10:00 NC 10 L sats 96% 11/08 08:00 NC 15 L sats 95% (3) Obstructive sleep apnea on CPAP: Code(s): G47.33 - Obstructive sleep apnea (adult) (pediatric); Z99.89 - Dependence on other enabling machines and devices Status: Acute Assessment and Plan: Regarding his obstructive sleep apnea patient states he had a sleep study at least 10 years ago and has been wearing CPAP mask since then with good clinical benefit. Patient states he can't sleep without the mask. Patient wears room air and he usually wears a nasal mask but over the last week as he has been sick he is switched to a fullface mask. Patient brought his home CPAP machine in and he is on a CPAP of 14, the data from the machine tells me that his days usage greater than 4 hours is 11/29/2029 days, his AHI is 0.5 over the last [address] Aniyah Jarquin is the physician that monitors his compliance and gets him his supplies and the patient tells me that he is in the process of getting a new machine because the machine is old and not because of any change in his clinical status. 11/05 Wore hospital BiPAP 12/5 70% and felt good according to patient. Will continue BiPAP at these settings for now. 11/07 Said he was still snorming last night. Will place on CPAP 14 with 60% tonight. 11/08 Patient wore says the hospital CPAP 14 last night with 70% and the pressure feels fine but the machine is louder and has more alarms which annoyed the patient. Cannot use his home machine as a cannot handle high enough oxygen. Subjective Date/time seen: 11/08/20 10:01 Interval history: this is a 40-year-old male with morbid obesity,
[2020-11-08 11:53] LABS: Glucose Point of Care 220 mg/dl (65-105)
[2020-11-08] MEDS: INSULIN ASPART (*BKC) 100 UNITS/ML SUB-Q ×2 (14:17→17:40)
--- NOTE | 2020-11-08 15:41 | PM.IMPN ---
Progress Note: A&P Assessment and Plan (1) Acute respiratory failure with hypoxia: Code(s): J96.01 - Acute respiratory failure with hypoxia Status: Acute Assessment and Plan: The patient is a 40-year-old man with a history of hypertension, hypothyroidism, who presented to the emergency room with increased shortness of breath and his smart watch telling him he had low oxygen levels. The patient developed COVID-19 symptoms of shortness of breath, cough, fatigue on 10/26/20. he had a COVID swab and was found to be positive on 10/31/2020. He called his doctor who is in [place] who prescribed him azithromycin, zinc and famotidine. His symptoms were not improving and instead gradually worsening and decided to come in for further evaluation. Initial vitals showed he was afebrile at 97.7?, tachycardic at 114, increased respiratory rate at 28 respirations a minute, blood pressure 139/83, and hypoxic at 88% on room air. Initial labs showed normal CBC with elevated neutrophil count at 85%, normal coag panel, ABG showing respiratory alkalosis from hyperventilation While on 3 L of oxygen. glucose elevated at 163, otherwise normal CMP. CTA of his chest was completed showing Limited evaluation for pulmonary embolism with no central pulmonary embolism identified. Diffuse lung disease consistent with history of COVID 19 pneumonia. He was admitted into the hospital for COVID-19 pneumonia and acute respiratory failure with hypoxia. Hypoxia secondary to COVID Started on IV Remdesivir, IV dexamethasone, p.r.n. inhalers and monitoring of respiratory status. 11/06/20 1400: The patient's nurse called and informed me that he was hypoxic with and requiring Airvo. 6 L of oxygen via nasal cannula was still found to be hypoxic. Stat ABG showed respiratory alkalosis, slightly elevated pH, normal pCO2 and O2 94% while on High Flow Therapy 50 LPM, FiO2 75%. He was moved to the IMU for further evaluation. I talked to the brass and wind instrument repairer, Dr. Weston, who recommended ordering Convalescent Plasma, Blood cultures due to decompensation and adding IV Azithromycin and Ceftriaxone, Turning the patient side to side to help with ventilation. If the patient decompensates from Airvo then he will require BiPAP and recommended starting with settings, 12/5 with 100% ventilation Antibiotics DC'd Blood cultures show no growth at this time Today, patient is stable 94% on 15 L High Flow NC. Feeling well. Continue monitoring the patient's respiratory status. Appreciate pulmonology's input. (2) Pneumonia due to COVID-19 virus: Code(s): U07.1 - COVID-19; J12.82 - Pneumonia due to coronavirus disease 2018 Status: Acute Assessment and Plan: see above. (3) Hypertension: Code(s): I10 - Essential (primary) hypertension Status: Acute Assessment and Plan: Blood pressure stable at 127/69. Continue home medications (4) Hypothyroidism: Code(s): E03.9 - Hypothyroidism, unspecified Status: Acute Assessment and Plan: continue levothyroxine. TSH was normal. (5) Obstructive sleep apnea on CPAP: Code(s): G47.33 - Obstructive sleep apnea (adult) (pediatric); Z99.89 - Dependence on other enabling machines and devices Status: Acute Assessment and Plan: The patient can still wear his CPAP and will get the patients home settings (6) New onset type 2 diabetes mellitus: Code(s): E11.9 - Type 2 diabetes mellitus without complications Status: Acute Assessment and Plan: Patient had elevated glucose levels and hemoglobin A1c is elevated at 6.8%. He has a new onset diabetic at this time. Will consider starting metformin upon discharge. While here we
[2020-11-08 16:53] LABS: Glucose Point of Care 286 mg/dl (65-105)
[2020-11-08 19:46] LABS: Glucose Point of Care 270 mg/dl (65-105)
[2020-11-08] MEDS: REMDESIVIR 100 MG/NS 250 ML 100 MG/250 ML BAG 250 MG IVPB (21:23)
[2020-11-09] VITALS (28 sets, daily range): BP systolic 119–147; BP diastolic 61–84; PULSE 60–80; RESP 15–18; TEMP 36.4–36.9; O2SAT 95–99
[2020-11-09] MEDS: ALBUTEROL SULFATE NEB 2.5 MG/0.5 ML INH INHALATION ×4 (02:45→20:56)
[2020-11-09 05:47] LABS: Basophils Percent Auto 0.3 % (0.2-1.2); Eosinophils Percent Auto 0.5 % (0-4.4); Hemoglobin 13.7 g/dL (14.0-18.0); Immature Granulocyte Absolute 0.16 K/mm3 (0.00-0.031); Immature Granulocyte Percent A 1.8 % (0-0.5); Lymphocytes Absolute Auto 1.17 K/mm3 (0.9-3.2); Lymphocytes Percent Auto 13.5 % (18.3-44.2); Mean Corpuscular HGB Conc 32.6 g/dl (32-36); Mean Corpuscular Hemoglobin 26.4 pg (26-34); Mean Corpuscular Volume 81.1 fl (80-100); Mean Platelet Volume 9.6 fl (7.4-10.4); Monocytes Absolute Auto 0.8 K/mm3 (0.1-0.6); Monocytes Percent Auto 9.2 % (2.6-8.5); Neutrophils Absolute Auto 6.5 K/mm3 (1.3-6.7); Neutrophils Percent Auto 74.7 % (45.5-73.1); Platelet Count Result 283 k/mm3 (150-375); Red Blood Count 5.18 M/mm3 (4.6-6.20); Red Cell Distribution Width 14.4 % (11.5-14.5); White Blood Count 8.7 K/mm3 (4.5-10.0)
[2020-11-09 05:54] LABS: Alanine Aminotransferase 47 U/L (4-50); Albumin Level 3.6 g/dL (3.5-5.1); Alkaline Phosphatase 45 U/L (38-126); Anion Gap 8 mmol/L (8-16); Aspartate Amino Transferase 31 U/L (17-59); Bilirubin,Total 0.4 mg/dL (0.2-1.3); Blood Urea Nitrogen 21 mg/dL (9-20); Calcium 9.2 mg/dL (8.4-10.2); Carbon Dioxide 28 mmol/L (22-30); Chloride 102 mmol/L (98-107); Estimated CRCL calculation 203 ml/min; Estimated Glomerular Filt Rate > 60; Glucose 156 mg/dL (75-110); Magnesium 1.8 mg/dL (1.6-2.3); Potassium 3.9 mmol/L (3.4-5.0); Sodium 138 mmol/L (137-145)
[2020-11-09] MEDS: LEVOTHYROXINE SODIUM 125 MCG TABLET 250 MCG PO (06:19)
[2020-11-09] MEDS: DEXAMETHASONE SOD PHOS INJ 4 MG/ML VIAL 6 MG IV PUSH (08:04)
[2020-11-09] MEDS: CHOLECALCIFEROL 1,000 UNITS TABLET 4000 UNITS PO (08:04)
[2020-11-09] MEDS: PROPRANOLOL HCL 40 MG TABLET PO ×3 (08:04→16:55)
[2020-11-09] MEDS: hydroCHLOROthiazide 25 MG TABLET PO (08:04)
[2020-11-09] MEDS: FAMOTIDINE 20 MG TABLET PO ×2 (08:04→16:55)
[2020-11-09] MEDS: lisinopriL 20 MG TABLET PO (08:04)
[2020-11-09] MEDS: ENOXAPARIN 40 MG/0.4 ML SYRINGE SUB-Q ×2 (08:04→21:12)
[2020-11-09] MEDS: ZINC SULFATE 220 MG CAPSULE PO (08:04)
[2020-11-09] MEDS: ASCORBIC ACID 500 MG TABLET PO ×2 (08:04→16:55)
[2020-11-09 08:26] LABS: Glucose Point of Care 141 mg/dl (65-105)
--- NOTE | 2020-11-09 09:31 | PM.PNPUL ---
Progress Note: A&P Assessment and Plan (1) Pneumonia due to COVID-19 virus: Code(s): U07.1 - COVID-19; J12.82 - Pneumonia due to coronavirus disease 2019 Status: Acute Assessment and Plan: Patient with COVID postitive test on 10/31 and admitted with pneumonia with hypoxemic respiratory failure on 11/04. started on dexamethasone and Remdesivir on 11/04 and given convalescent plasma on 11/05. Emperically started on ceftriaxone and azithromycin 11/05, DC 11/08. -Remdesivir for 10 days -Dexamethasone for 10 days - Continuous pulse oximetry - attempt Prone positioning but limited as morbidly obese. - Avoid any fluid overload. BNP 251 on 11/06. - Emperic azithromycin and ceftraixone for CAP. DC 11/08. - Obtain echo to assess LV function in future. - Lovenox 40 b.i.d. 11/06 Today the patient tells me that he feels better, he did have a fever and sweats last night and he was able to taste his dinner last night. Patient is currently on high-flow nasal cannula 50 L and 65% with saturations 94%. 11/07 Today patient tells me that he is improved and feels much better. Patient is currently on high-flow nasal cannula 10 L with saturations 96%, great improvement. Patient is sitting up in a chair in no respiratory distress. If blood cultures negative 11/08 will DC ceftraixone and azithromycin. 11/08 Slowly improving. Patient wore says the hospital CPAP 14 last night and the pressure feels fine but the machine is louder and has more alarms which annoyed the patient. Patient is currently on high-flow nasal cannula 15 L with saturations 95%. Blood cultures are negative and I will discontinue ceftriaxone and azithromycin. 11/09 states that he continues to slowly improve. Remains with some dyspnea on exertion. Currently the patient is on 12 L nasal cannula saturations 95%. Patient wore the hospital CPAP 14 and was weaned down to 50% last night. I ordered 5 more days of remdesivir 100 mg a day Patient clinically improving and oxygen requirements stabilizing. Continue remdesivir and dexamethasone for a total of 10 days unless the patient is on room air with rest and ambulation. Patient should have a chest x-ray prior to discharge to serve as a new baseline. Prior to discharge his oxygen requirements should be assessed during the day and at night with a home O2 evaluation and an overnight apnea link. Goal saturations are 90-94% and will utilize high-flow oxygen, BiPAP, or mechanical ventilation. 11/06 Conference call with his and patient and patient is full code Discussed with Emmanuel Cunningham, will sign off, call with any questions (2) Acute respiratory failure with hypoxia: Code(s): J96.01 - Acute respiratory failure with hypoxia Status: Acute Assessment and Plan: Etiology of hypoxic respiratorey failure is COVID pneumonia. 11/04 10:15 RA sats 88%. 11/04 10:45 3L NC sats 93% 11/05 10:00 6L NC sats 96% 11/05 14:00 15 L NC sats 92%. 11/05 22:00 high-flow NC at 50 L and 70% sats 98%. 11/05 21: BiPAP 12/5 and 70%. 11/06 09:00 high flow NC at 50 L and 65% sats 94%. 11/07 10:00 NC 10 L sats 96%, CPAP 14 70% at night 11/08 08:00 NC 15 L sats 95%, CPAP 14 50% at night 11/09 08:30 NC 12 L sats 95% (3) Obstructive sleep apnea on CPAP: Code(s): G47.33 - Obstructive sleep apnea (adult) (pediatric); Z99.89 - Dependence on other enabling machines and devices Status: Acute Assessment and Plan: Regarding his obstructive sleep apnea patient states he had a sleep study at least 10 years ago and has been wearing CPAP mask since then with good clinical benefit. Patient states he can't sleep without the mask. Patient wears room air and he usually wears a nasal mask but over the last week as he has been sick he is switched to a fullface mask. Patient brought his home CPAP machine in and he is on a CPAP of 14, the data from the machine tells me that his days usage greater than 4 hours is 11/29/2029 days, his AHI i
--- NOTE | 2020-11-09 11:05 | PM.IMPN ---
Progress Note: A&P Assessment and Plan (1) Acute respiratory failure with hypoxia: Code(s): J96.01 - Acute respiratory failure with hypoxia Status: Acute Assessment and Plan: The patient is a 40-year-old man with a history of hypertension, hypothyroidism, who presented to the emergency room with increased shortness of breath and his smart watch telling him he had low oxygen levels. The patient developed COVID-19 symptoms of shortness of breath, cough, fatigue on 10/26/20. he had a COVID swab and was found to be positive on 10/31/2020. He called his doctor who is in [place] who prescribed him azithromycin, zinc and famotidine. His symptoms were not improving and instead gradually worsening and decided to come in for further evaluation. Initial vitals showed he was afebrile at 97.7?, tachycardic at 114, increased respiratory rate at 28 respirations a minute, blood pressure 139/83, and hypoxic at 88% on room air. Initial labs showed normal CBC with elevated neutrophil count at 85%, normal coag panel, ABG showing respiratory alkalosis from hyperventilation While on 3 L of oxygen. glucose elevated at 163, otherwise normal CMP. CTA of his chest was completed showing Limited evaluation for pulmonary embolism with no central pulmonary embolism identified. Diffuse lung disease consistent with history of COVID 19 pneumonia. He was admitted into the hospital for COVID-19 pneumonia and acute respiratory failure with hypoxia. Hypoxia secondary to COVID Started on IV Remdesivir, IV dexamethasone, p.r.n. inhalers and monitoring of respiratory status Will need treatment for the full 10 days 11/06/20 1400: The patient's nurse called and informed me that he was hypoxic with and requiring Airvo. 6 L of oxygen via nasal cannula was still found to be hypoxic. Stat ABG showed respiratory alkalosis, slightly elevated pH, normal pCO2 and O2 94% while on High Flow Therapy 50 LPM, FiO2 50%. He was moved to the IMU for further evaluation. I talked to the office mail clerk, Dr. Weston, who recommended ordering Convalescent Plasma, Blood cultures due to decompensation and adding IV Azithromycin and Ceftriaxone, Turning the patient side to side to help with ventilation. If the patient decompensates from Airvo then he will require BiPAP and recommended starting with settings, 12/ with 100% ventilation Antibiotics DC'd Blood cultures show no growth at this time, antibiotics have been DC'd Today, patient is stable 95% on 11-12 L High Flow NC. Feeling well. Will add PT/OT Continue monitoring the patient's respiratory status. Appreciate pulmonology's input. (2) Pneumonia due to COVID-19 virus: Code(s): U07.1 - COVID-19; J12.82 - Pneumonia due to coronavirus disease 2018 Status: Acute Assessment and Plan: see above. (3) Hypertension: Code(s): I10 - Essential (primary) hypertension Status: Acute Assessment and Plan: Blood pressure stable at 137/84. Continue home medications (4) Hypothyroidism: Code(s): E03.9 - Hypothyroidism, unspecified Status: Acute Assessment and Plan: continue levothyroxine. TSH was normal. (5) Obstructive sleep apnea on CPAP: Code(s): G47.33 - Obstructive sleep apnea (adult) (pediatric); Z99.89 - Dependence on other enabling machines and devices Status: Acute Assessment and Plan: The patient can still wear his CPAP and will get the patients home settings (6) New onset type 2 diabetes mellitus: Code(s): E11.9 - Type 2 diabetes mellitus without complications Status: Acute Assessment and Plan: Patient had elevated glucose levels and hemoglobin A1c is elevated at 6.8%. He has a new ons
[2020-11-09 12:01] LABS: Glucose Point of Care 221 mg/dl (65-105)
[2020-11-09] MEDS: INSULIN ASPART (*BKC) 100 UNITS/ML SUB-Q ×2 (12:14→16:55)
[2020-11-09 16:31] LABS: Glucose Point of Care 236 mg/dl (65-105)
[2020-11-09] MEDS: REMDESIVIR 100 MG/NS 250 ML 100 MG/250 ML BAG 250 MG IVPB (21:12)
[2020-11-09] MEDS: SODIUM CHLORIDE NASAL GEL 14.1 GM 1 APPLIC NASAL (21:12)
[2020-11-09 21:52] LABS: Glucose Point of Care 140 mg/dl (65-105)
[2020-11-10] VITALS (22 sets, daily range): BP systolic 121–151; BP diastolic 74–86; PULSE 50–85; RESP 16–20; TEMP 36–36.7; O2SAT 92–97
[2020-11-10] MEDS: ALBUTEROL SULFATE NEB 2.5 MG/0.5 ML INH INHALATION ×4 (02:35→19:50)
[2020-11-10 05:08] LABS: Basophils Percent Auto 0.4 % (0.2-1.2); Eosinophils Absolute Auto 0.1 K/mm3 (0-0.3); Eosinophils Percent Auto 1.1 % (0-4.4); Hematocrit 41.2 % (42.0-52.0); Hemoglobin 13.3 g/dL (14.0-18.0); Immature Granulocyte Absolute 0.21 K/mm3 (0.00-0.031); Immature Granulocyte Percent A 2.1 % (0-0.5); Lymphocytes Absolute Auto 1.59 K/mm3 (0.9-3.2); Lymphocytes Percent Auto 15.8 % (18.3-44.2); Mean Corpuscular HGB Conc 32.3 g/dl (32-36); Mean Corpuscular Hemoglobin 26.4 pg (26-34); Mean Corpuscular Volume 81.7 fl (80-100); Mean Platelet Volume 9.8 fl (7.4-10.4); Monocytes Absolute Auto 0.9 K/mm3 (0.1-0.6); Monocytes Percent Auto 8.6 % (2.6-8.5); Neutrophils Absolute Auto 7.3 K/mm3 (1.3-6.7); Platelet Count Result 297 k/mm3 (150-375); Red Blood Count 5.04 M/mm3 (4.6-6.20); Red Cell Distribution Width 14.6 % (11.5-14.5); White Blood Count 10.1 K/mm3 (4.5-10.0)
[2020-11-10 05:16] LABS: INR 1.1; Prothrombin Time 15.2 Seconds (11.1-14.7)
[2020-11-10 05:23] LABS: Alanine Aminotransferase 47 U/L (4-50); Albumin Level 3.6 g/dL (3.5-5.1); Alkaline Phosphatase 41 U/L (38-126); Anion Gap 7 mmol/L (8-16); Aspartate Amino Transferase 31 U/L (17-59); Bilirubin,Total 0.6 mg/dL (0.2-1.3); Blood Urea Nitrogen 20 mg/dL (9-20); Calcium 8.9 mg/dL (8.4-10.2); Carbon Dioxide 31 mmol/L (22-30); Chloride 100 mmol/L (98-107); Estimated CRCL calculation 182 ml/min; Estimated Glomerular Filt Rate > 60; Glucose 150 mg/dL (75-110); Magnesium 1.8 mg/dL (1.6-2.3); Potassium 3.9 mmol/L (3.4-5.0); Sodium 138 mmol/L (137-145)
[2020-11-10] MEDS: LEVOTHYROXINE SODIUM 125 MCG TABLET 250 MCG PO (06:48)
[2020-11-10 08:46] LABS: Glucose Point of Care 147 mg/dl (65-105)
[2020-11-10] MEDS: ZINC SULFATE 220 MG CAPSULE PO (09:39)
[2020-11-10] MEDS: CHOLECALCIFEROL 1,000 UNITS TABLET 4000 UNITS PO (09:39)
[2020-11-10] MEDS: PROPRANOLOL HCL 40 MG TABLET PO ×3 (09:39→17:27)
[2020-11-10] MEDS: lisinopriL 20 MG TABLET PO (09:39)
[2020-11-10] MEDS: ASCORBIC ACID 500 MG TABLET PO ×2 (09:40→17:28)
[2020-11-10] MEDS: FAMOTIDINE 20 MG TABLET PO ×2 (09:40→17:28)
[2020-11-10] MEDS: ENOXAPARIN 40 MG/0.4 ML SYRINGE SUB-Q ×2 (09:40→21:19)
[2020-11-10] MEDS: guaiFENesin/DEXTROMETHORPHAN 10 ML UDC 5 ML PO ×2 (09:40→22:19)
[2020-11-10] MEDS: DEXAMETHASONE SOD PHOS INJ 4 MG/ML VIAL 6 MG IV PUSH (09:40)
[2020-11-10] MEDS: hydroCHLOROthiazide 25 MG TABLET PO (09:41)
[2020-11-10] MEDS: INSULIN ASPART (*BKC) 100 UNITS/ML SUB-Q ×2 (12:21→17:29)
[2020-11-10 12:24] LABS: Glucose Point of Care 206 mg/dl (65-105)
--- NOTE | 2020-11-10 13:04 | PC.NURSE ---
This patient, Wood Wilburn, was transferred to [[facility] ] on 11/10/20 at 1304. Personal belongings sent with patient. Report given to [ shelton her]. Appropriate documentation sent with patient.
--- NOTE | 2020-11-10 13:17 | PC.NURSE ---
This patient, Wood Wilburn, was received from [ IMU] on 11/10/20 at 1255. Patient/family oriented to unit policies and routines
--- NOTE | 2020-11-10 15:24 | PM.IMPN ---
Progress Note: A&P Assessment and Plan (1) Acute respiratory failure with hypoxia: Code(s): J96.01 - Acute respiratory failure with hypoxia Status: Acute Assessment and Plan: The patient is a 40-year-old man with a history of hypertension, hypothyroidism, who presented to the emergency room with increased shortness of breath and his smart watch telling him he had low oxygen levels. The patient developed COVID-19 symptoms of shortness of breath, cough, fatigue on 10/26/20. he had a COVID swab and was found to be positive on 10/31/2020. He called his doctor who is in [place] who prescribed him azithromycin, zinc and famotidine. His symptoms were not improving and instead gradually worsening and decided to come in for further evaluation. Initial vitals showed he was afebrile at 97.7?, tachycardic at 114, increased respiratory rate at 28 respirations a minute, blood pressure 139/83, and hypoxic at 88% on room air. Initial labs showed normal CBC with elevated neutrophil count at 85%, normal coag panel, ABG showing respiratory alkalosis from hyperventilation While on 3 L of oxygen. glucose elevated at 163, otherwise normal CMP. CTA of his chest was completed showing Limited evaluation for pulmonary embolism with no central pulmonary embolism identified. Diffuse lung disease consistent with history of COVID 19 pneumonia. He was admitted into the hospital for COVID-19 pneumonia and acute respiratory failure with hypoxia. Hypoxia secondary to COVID Started on IV Remdesivir, IV dexamethasone, p.r.n. inhalers and monitoring of respiratory status Will need treatment for the full 10 days 11/06/20 1400: The patient's nurse called and informed me that he was hypoxic with and requiring Airvo. 6 L of oxygen via nasal cannula was still found to be hypoxic. Stat ABG showed respiratory alkalosis, slightly elevated pH, normal pCO2 and O2 94% while on High Flow Therapy 50 LPM, FiO2 50%. He was moved to the IMU for further evaluation. I talked to the clinical support tech, Dr. Weston, who recommended ordering Convalescent Plasma, Blood cultures due to decompensation and adding IV Azithromycin and Ceftriaxone, Turning the patient side to side to help with ventilation. If the patient decompensates from Airvo then he will require BiPAP and recommended starting with settings, 12/ with 100% ventilation Antibiotics DC'd Blood cultures show no growth at this time, antibiotics have been DC'd Today, patient is stable 95% on 3-5 LNC. Feeling well. Will add PT/OT Continue monitoring the patient's respiratory status. Appreciate pulmonology's input. (2) Pneumonia due to COVID-19 virus: Code(s): U07.1 - COVID-19; J12.82 - Pneumonia due to coronavirus disease 2018 Status: Acute Assessment and Plan: see above. (3) Hypertension: Code(s): I10 - Essential (primary) hypertension Status: Acute Assessment and Plan: Blood pressure stable at 133/88. Continue home medications (4) Hypothyroidism: Code(s): E03.9 - Hypothyroidism, unspecified Status: Acute Assessment and Plan: continue levothyroxine. TSH was normal. (5) Obstructive sleep apnea on CPAP: Code(s): G47.33 - Obstructive sleep apnea (adult) (pediatric); Z99.89 - Dependence on other enabling machines and devices Status: Acute Assessment and Plan: The patient can still wear his CPAP and will get the patients home settings (6) New onset type 2 diabetes mellitus: Code(s): E11.9 - Type 2 diabetes mellitus without complications Status: Acute Assessment and Plan: Patient had elevated glucose levels and hemoglobin A1c is elevated at 6.8%. He has a new onset diabetic a
[2020-11-10 17:32] LABS: Glucose Point of Care 235 mg/dl (65-105)
[2020-11-10] MEDS: REMDESIVIR 100 MG/NS 250 ML 100 MG/250 ML BAG 250 MG IVPB (21:18)
[2020-11-10 22:40] LABS: Glucose Point of Care 170 mg/dl (65-105)
[2020-11-11] VITALS (20 sets, daily range): BP systolic 112–126; BP diastolic 57–77; PULSE 50–81; RESP 18–22; TEMP 35.8–36.4; O2SAT 91–100
[2020-11-11] MEDS: ALBUTEROL SULFATE NEB 2.5 MG/0.5 ML INH INHALATION ×4 (02:04→19:54)
[2020-11-11] MEDS: LEVOTHYROXINE SODIUM 125 MCG TABLET 250 MCG PO (06:14)
[2020-11-11 06:41] LABS: Basophils Absolute Auto 0.1 K/mm3 (0.0-0.1); Basophils Percent Auto 0.4 % (0.2-1.2); Eosinophils Absolute Auto 0.1 K/mm3 (0-0.3); Eosinophils Percent Auto 0.9 % (0-4.4); Hematocrit 41.9 % (42.0-52.0); Hemoglobin 13.9 g/dL (14.0-18.0); Immature Granulocyte Absolute 0.28 K/mm3 (0.00-0.031); Immature Granulocyte Percent A 2.4 % (0-0.5); Lymphocytes Absolute Auto 1.68 K/mm3 (0.9-3.2); Lymphocytes Percent Auto 14.6 % (18.3-44.2); Mean Corpuscular HGB Conc 33.2 g/dl (32-36); Mean Corpuscular Hemoglobin 26.7 pg (26-34); Mean Corpuscular Volume 80.4 fl (80-100); Mean Platelet Volume 9.9 fl (7.4-10.4); Monocytes Percent Auto 8.8 % (2.6-8.5); Neutrophils Absolute Auto 8.4 K/mm3 (1.3-6.7); Neutrophils Percent Auto 72.9 % (45.5-73.1); Platelet Count Result 335 k/mm3 (150-375); Red Blood Count 5.21 M/mm3 (4.6-6.20); Red Cell Distribution Width 14.5 % (11.5-14.5); White Blood Count 11.5 K/mm3 (4.5-10.0)
[2020-11-11 06:49] LABS: INR 1.2
[2020-11-11 06:52] LABS: Alanine Aminotransferase 54 U/L (4-50); Albumin Level 3.6 g/dL (3.5-5.1); Alkaline Phosphatase 41 U/L (38-126); Anion Gap 7 mmol/L (8-16); Aspartate Amino Transferase 37 U/L (17-59); Bilirubin,Total 0.7 mg/dL (0.2-1.3); Blood Urea Nitrogen 21 mg/dL (9-20); Calcium 9.2 mg/dL (8.4-10.2); Carbon Dioxide 32 mmol/L (22-30); Chloride 100 mmol/L (98-107); Estimated CRCL calculation 180 ml/min; Estimated Glomerular Filt Rate > 60; Glucose 140 mg/dL (75-110); Magnesium 1.9 mg/dL (1.6-2.3); Potassium 4.2 mmol/L (3.4-5.0); Sodium 139 mmol/L (137-145)
[2020-11-11 08:11] LABS: Glucose Point of Care 143 mg/dl (65-105)
--- NOTE | 2020-11-11 08:42 | PM.IMPN ---
Progress Note: A&P Assessment and Plan (1) Acute respiratory failure with hypoxia: Code(s): J96.01 - Acute respiratory failure with hypoxia Status: Acute Assessment and Plan: The patient is a 40-year-old man with a history of hypertension, hypothyroidism, who presented to the emergency room with increased shortness of breath and his smart watch telling him he had low oxygen levels. The patient developed COVID-19 symptoms of shortness of breath, cough, fatigue on 10/26/20. he had a COVID swab and was found to be positive on 10/31/2020. He called his doctor who is in [place] who prescribed him azithromycin, zinc and famotidine. His symptoms were not improving and instead gradually worsening and decided to come in for further evaluation. Initial vitals showed he was afebrile at 97.7?, tachycardic at 114, increased respiratory rate at 28 respirations a minute, blood pressure 139/83, and hypoxic at 88% on room air. Initial labs showed normal CBC with elevated neutrophil count at 85%, normal coag panel, ABG showing respiratory alkalosis from hyperventilation While on 3 L of oxygen. glucose elevated at 163, otherwise normal CMP. CTA of his chest was completed showing Limited evaluation for pulmonary embolism with no central pulmonary embolism identified. Diffuse lung disease consistent with history of COVID 19 pneumonia. He was admitted into the hospital for COVID-19 pneumonia and acute respiratory failure with hypoxia. Hypoxia secondary to COVID Started on IV Remdesivir, IV dexamethasone, p.r.n. inhalers and monitoring of respiratory status Will need treatment for the full 10 days, day 8 currently 11/06/20 1400: The patient's nurse called and informed me that he was hypoxic with and requiring Airvo. 6 L of oxygen via nasal cannula was still found to be hypoxic. Stat ABG showed respiratory alkalosis, slightly elevated pH, normal pCO2 and O2 94% while on High Flow Therapy 50 LPM, FiO2 50%. He was moved to the IMU for further evaluation. I talked to the senior procurement manager, Dr. Weston, who recommended ordering Convalescent Plasma, Blood cultures due to decompensation and adding IV Azithromycin and Ceftriaxone, Turning the patient side to side to help with ventilation. If the patient decompensates from Airvo then he will require BiPAP and recommended starting with settings, 12/ with 100% ventilation Antibiotics DC'd Blood cultures show no growth at this time, antibiotics have been DC'd Today, patient is stable 91% on 3LNC. Feeling well. Will add PT/OT Continue monitoring the patient's respiratory status. Appreciate pulmonology's input. (2) Pneumonia due to COVID-19 virus: Code(s): U07.1 - COVID-19; J12.82 - Pneumonia due to coronavirus disease 2018 Status: Acute Assessment and Plan: see above. (3) Hypertension: Code(s): I10 - Essential (primary) hypertension Status: Acute Assessment and Plan: Blood pressure stable at 133/88. Continue home medications (4) Hypothyroidism: Code(s): E03.9 - Hypothyroidism, unspecified Status: Acute Assessment and Plan: continue levothyroxine. TSH was normal. (5) Obstructive sleep apnea on CPAP: Code(s): G47.33 - Obstructive sleep apnea (adult) (pediatric); Z99.89 - Dependence on other enabling machines and devices Status: Acute Assessment and Plan: The patient can still wear his CPAP and will get the patients home settings (6) New onset type 2 diabetes mellitus: Code(s): E11.9 - Type 2 diabetes mellitus without complications Status: Acute Assessment and Plan: Patient had elevated glucose levels and hemoglobin A1c is elevated at 6.8%. He has a new on
[2020-11-11] MEDS: DEXAMETHASONE SOD PHOS INJ 4 MG/ML VIAL 6 MG IV PUSH (08:43)
[2020-11-11] MEDS: ENOXAPARIN 40 MG/0.4 ML SYRINGE SUB-Q ×2 (08:43→20:54)
[2020-11-11] MEDS: CHOLECALCIFEROL 1,000 UNITS TABLET 4000 UNITS PO (08:44)
[2020-11-11] MEDS: PROPRANOLOL HCL 40 MG TABLET PO ×3 (08:45→17:21)
[2020-11-11] MEDS: hydroCHLOROthiazide 25 MG TABLET PO (08:45)
[2020-11-11] MEDS: ASCORBIC ACID 500 MG TABLET PO ×2 (08:45→17:22)
[2020-11-11] MEDS: FAMOTIDINE 20 MG TABLET PO ×2 (08:45→17:22)
[2020-11-11] MEDS: ZINC SULFATE 220 MG CAPSULE PO (08:45)
[2020-11-11] MEDS: lisinopriL 20 MG TABLET PO (08:45)
[2020-11-11 09:26] LABS: NT Pro B Type Natriuretic Pept 51 pg/mL (5-100)
[2020-11-11 11:24] LABS: Glucose Point of Care 207 mg/dl (65-105)
[2020-11-11] MEDS: INSULIN ASPART (*BKC) 100 UNITS/ML SUB-Q (11:30)
--- NOTE | 2020-11-11 13:49 | PCNWS ---
Weekly nutritional screen. Patient is tolerating current diet with adequate intake of 100% of meals. No weight loss reported. No nutritional needs at this time.
--- NOTE | 2020-11-11 14:21 | PCNSR ---
On 11/11/20, the student, Lorie Dotson, provided care and completed [facility] documentation on this patient. I have reviewed the student's documentation and agree with the findings.
[2020-11-11 17:27] LABS: Glucose Point of Care 179 mg/dl (65-105)
[2020-11-11 20:41] LABS: Glucose Point of Care 233 mg/dl (65-105)
[2020-11-11] MEDS: REMDESIVIR 100 MG/NS 250 ML 100 MG/250 ML BAG 250 MG IVPB (20:54)
[2020-11-11] MEDS: SODIUM CHLORIDE NASAL GEL 14.1 GM 1 APPLIC NASAL (20:58)
[2020-11-12] VITALS (16 sets, daily range): BP systolic 117–128; BP diastolic 73–82; PULSE 50–95; RESP 14–20; TEMP 35.9–36.1; O2SAT 90–95
[2020-11-12] MEDS: ALBUTEROL SULFATE NEB 2.5 MG/0.5 ML INH INHALATION ×3 (02:25→14:06)
[2020-11-12] MEDS: LEVOTHYROXINE SODIUM 125 MCG TABLET 250 MCG PO (05:56)
[2020-11-12 07:08] LABS: Hematocrit 44.3 % (42.0-52.0); Hemoglobin 13.9 g/dL (14.0-18.0); Mean Corpuscular HGB Conc 31.4 g/dl (32-36); Mean Corpuscular Volume 82.8 fl (80-100); Mean Platelet Volume 10.4 fl (7.4-10.4); Platelet Count Result 324 k/mm3 (150-375); Red Blood Count 5.35 M/mm3 (4.6-6.20); Red Cell Distribution Width 14.9 % (11.5-14.5); White Blood Count 11.4 K/mm3 (4.5-10.0)
[2020-11-12 07:18] LABS: INR 1.1; Prothrombin Time 14.1 Seconds (11.1-14.7)
[2020-11-12 07:26] LABS: Alanine Aminotransferase 60 U/L (4-50); Estimated CRCL calculation 179 ml/min; Estimated Glomerular Filt Rate > 60
[2020-11-12 07:27] LABS: Alanine Aminotransferase 62 U/L (4-50); Albumin Level 3.7 g/dL (3.5-5.1); Alkaline Phosphatase 45 U/L (38-126); Anion Gap 10 mmol/L (8-16); Aspartate Amino Transferase 33 U/L (17-59); Bilirubin,Total 0.7 mg/dL (0.2-1.3); Blood Urea Nitrogen 20 mg/dL (9-20); Calcium 9.4 mg/dL (8.4-10.2); Carbon Dioxide 29 mmol/L (22-30); Chloride 100 mmol/L (98-107); Estimated CRCL calculation 179 ml/min; Estimated Glomerular Filt Rate > 60; Glucose 130 mg/dL (75-110); Magnesium 1.9 mg/dL (1.6-2.3); Sodium 139 mmol/L (137-145)
[2020-11-12 07:57] LABS: Glucose Point of Care 126 mg/dl (65-105)
[2020-11-12] MEDS: CHOLECALCIFEROL 1,000 UNITS TABLET 4000 UNITS PO (10:02)
[2020-11-12] MEDS: ENOXAPARIN 40 MG/0.4 ML SYRINGE SUB-Q (10:02)
[2020-11-12] MEDS: PROPRANOLOL HCL 40 MG TABLET PO ×3 (10:02→17:52)
[2020-11-12] MEDS: DEXAMETHASONE SOD PHOS INJ 4 MG/ML VIAL 6 MG IV PUSH (10:02)
[2020-11-12] MEDS: ZINC SULFATE 220 MG CAPSULE PO (10:03)
[2020-11-12] MEDS: FAMOTIDINE 20 MG TABLET PO ×2 (10:03→17:53)
[2020-11-12] MEDS: lisinopriL 20 MG TABLET PO (10:03)
[2020-11-12] MEDS: hydroCHLOROthiazide 25 MG TABLET PO (10:03)
[2020-11-12] MEDS: ASCORBIC ACID 500 MG TABLET PO ×2 (10:03→17:53)
[2020-11-12 12:04] LABS: Glucose Point of Care 161 mg/dl (65-105)
--- NOTE | 2020-11-12 13:20 | PM.DS ---
DS: Admitting Diagnosis Admitting Diagnosis Admitting Diagnosis: COVID-19 DS: Discharge Diagnosis Discharge Diagnosis (1) Acute respiratory failure with hypoxia: Code(s): J96.01 - Acute respiratory failure with hypoxia Status: Acute Assessment and Plan: The patient is a 40-year-old man with a history of hypertension, hypothyroidism, who presented to the emergency room with increased shortness of breath and his smart watch telling him he had low oxygen levels. The patient developed COVID-19 symptoms of shortness of breath, cough, fatigue on 10/26/20. he had a COVID swab and was found to be positive on 10/31/2020. He called his doctor who is in [place] who prescribed him azithromycin, zinc and famotidine. His symptoms were not improving and instead gradually worsening and decided to come in for further evaluation. Initial vitals showed he was afebrile at 97.7?, tachycardic at 114, increased respiratory rate at 28 respirations a minute, blood pressure 139/83, and hypoxic at 88% on room air. Initial labs showed normal CBC with elevated neutrophil count at 85%, normal coag panel, ABG showing respiratory alkalosis from hyperventilation While on 3 L of oxygen. glucose elevated at 163, otherwise normal CMP. CTA of his chest was completed showing Limited evaluation for pulmonary embolism with no central pulmonary embolism identified. Diffuse lung disease consistent with history of COVID 19 pneumonia. He was admitted into the hospital for COVID-19 pneumonia and acute respiratory failure with hypoxia. Hypoxia secondary to COVID Started on IV Remdesivir, IV dexamethasone, p.r.n. inhalers and monitoring of respiratory status Will need treatment for the full 10 days, day 8 currently 11/06/20 1400: The patient's nurse called and informed me that he was hypoxic with and requiring Airvo. 6 L of oxygen via nasal cannula was still found to be hypoxic. Stat ABG showed respiratory alkalosis, slightly elevated pH, normal pCO2 and O2 94% while on High Flow Therapy 50 LPM, FiO2 50%. He was moved to the IMU for further evaluation. I talked to the shellfish weigher, Dr. Weston, who recommended ordering Convalescent Plasma, Blood cultures due to decompensation and adding IV Azithromycin and Ceftriaxone, Turning the patient side to side to help with ventilation. If the patient decompensates from Airvo then he will require BiPAP and recommended starting with settings, 12/5 with 100% ventilation Antibiotics DC'd Blood cultures show no growth at this time, antibiotics have been DC'd Today, patient is stable 91% on 3LNC. Feeling well. Will add PT/OT Continue monitoring the patient's respiratory status. Appreciate pulmonology's input. (2) Pneumonia due to COVID-19 virus: Code(s): U07.1 - COVID-19; J12.82 - Pneumonia due to coronavirus disease 2018 Status: Acute Assessment and Plan: see above. (3) Hypertension: Code(s): I10 - Essential (primary) hypertension Status: Acute Assessment and Plan: Blood pressure stable at 133/88. Continue home medications (4) Hypothyroidism: Code(s): E03.9 - Hypothyroidism, unspecified Status: Acute Assessment and Plan: continue levothyroxine. TSH was normal. (5) Obstructive sleep apnea on CPAP: Code(s): G47.33 - Obstructive sleep apnea (adult) (pediatric); Z99.89 - Dependence on other enabling machines and devices Status: Acute Assessment and Plan: The patient can still wear his CPAP and will get the patients home settings (6) New onset type 2 diabetes mellitus: Code(s): E11.9 - Type 2 diabetes mellitus without complications Status: Acute Assessment and Plan: Patient
--- NOTE | 2020-11-12 14:34 | HOMEO2EVAL ---
Evaluation was performed at [facility] Home Oxygen Evaluation RC: Home Oxygen (O2) Evaluation Start: 11/12/20 13:34 Freq: ONCE Status: Active Protocol: RPE Activity Type Activity Date Activity User E-Sign Co-Sign Detail Recorded Client Recorded Date Recorded By Document 11/12/20 14:00 [facility] [id number] 11/12/20 14:34 [facility] Document 11/12/20 14:02 [facility] [id number] 11/12/20 14:34 [facility] Document 11/12/20 14:09 [facility] [email or web address] 11/12/20 14:34 [facility] 11/12/20 11/12/20 11/12/20 14:00 14:02 14:09 Home O2 Evaluation Test Phase Resting Exercise Resting Oxygen Delivery Room Air Room Air Fraction of Inspired Oxygen (%) 21 21 21 Pulse Oximetry (90-100 %) 90 94 95 Pulse Rate (60-100 beats/min) 95 93 95 Activity Tolerance Good Rating of Perceived Dyspnea (PD) +1 Mild, Noticeable to the Participant but Not to an Observer Rate of Perceived Exertion (PE) 13 Somewhat Hard Ambulation Distance (feet) 250 Home Oxygen Evaluation Comments Pt does not qualify for home O2. Treatment Charges O2 Evaluation - Inpatient
[2020-11-12 17:05] LABS: Glucose Point of Care 225 mg/dl (65-105)
[2020-11-12] MEDS: INSULIN ASPART (*BKC) 100 UNITS/ML SUB-Q (17:52)
[2020-11-12] MEDS: REMDESIVIR 100 MG/NS 250 ML 100 MG/250 ML BAG 250 MG IVPB (17:53)
== END 2020-11-12 20:15 | disposition home or self-care (01) | DRG 177 ==
LOC: ANHED 12:52 → ANH3MEDSUR 11-05 07:25 → ANHIMU 11-08 06:51 → ANH3MEDSUR 11-11 10:12 → ANHIMU 11-15 11:59
PROVIDERS: Internal Medicine Pulmonary Disease; Physician Assistant; Admitting Provider Emergency Medicine; Emergency Provider Emergency Medicine; Visit Provider Nurse Practitioner
DX: U07.1 COVID-19 (principal); J12.82 Pneumonia due to coronavirus disease 2019; J96.01 Acute respiratory failure with hypoxia; Z68.43 Body mass index [BMI] 50.0-59.9, adult; E03.9 Hypothyroidism, unspecified; I10 Essential (primary) hypertension; G47.33 Obstructive sleep apnea (adult) (pediatric); E11.9 Type 2 diabetes mellitus without complications; E66.01 Morbid (severe) obesity due to excess calories; Z90.49 Acquired absence of other specified parts of digestive tract; Z87.891 Personal history of nicotine dependence
CPT/HCPCS: 36415; 36430; 36600; 71045; 71275; 80048; 80053; 80076; 82375; 82565; 82728; 82805; 82948; 83036; 83050; 83615; 83735; 83880; 84443; 84460; 85025; 85027; 85610; 86140; 86900; 86901; 87040; 93005; 94002; 94003; 94618; 94640; 97161; 97165; 99291; A9270; J0131; J0456; J0696; J1100; J1650; J1815; J8540; P9059; Q9967